=== PATIENT | male | born 1985 | race Two or more races ===

== ENCOUNTER 2020-08-11 03:33 | Inpatient (IN) | payer MEDICAID ==
[~2020-08-11] VITALS: Ht 165.1 cm; Wt 122.9 kg
[2020-08-11 04:16] LABS: COVID AG,FIA SOURCE NASOPHARYNGEAL
[2020-08-11 04:22] LABS: BASOPHILS % (AUTO) 0.5 % (0.0-2.0); EOSINOPHILS % (AUTO) 1.6 % (1.0-6.0); HEMATOCRIT 44.3 % (41-53); HEMOGLOBIN 14.8 g/dL (13.5-17.5); LYMPHOCYTES # (AUTO) 1.7 K/uL (1.0-4.8); LYMPHOCYTES % (AUTO) 14.3 % (22.0-44.0); MEAN CORPUSCULAR HEMOGLOBIN 30.6 pg (26.0-34.0); MEAN CORPUSCULAR HGB CONC 33.4 G/dL (31.0-37.0); MEAN CORPUSCULAR VOLUME 92 fL (80-100); MONOCYTES # (AUTO) 0.8 K/uL (0.1-1.0); MONOCYTES % (AUTO) 6.9 % (2.0-9.0); NEUTROPHILS # (AUTO) 8.9 K/uL (1.8-7.7); NEUTROPHILS % (AUTO) 76.7 % (40.0-70.0); PLATELET COUNT (AUTO) 350 K/uL (150-450); RED BLOOD CELL COUNT(AUTO) 4.83 MIL/uL (4.50-5.90); RED CELL DISTRIBUTION WIDTH 13.4 % (11.5-14.5)
[2020-08-11 04:30] LABS: ANION GAP 10 mmol/L (8-16); CALCIUM, TOTAL 9.7 mg/dL (8.8-10.5); CARBON DIOXIDE 28 mmol/L (22-29); CHLORIDE 103 mmol/L (98-107); CREATININE 1.41 mg/dL (0.60-1.30); GLOMERULAR FILTR. RATE CALC 57 mL/min (>60); GLUCOSE,RANDOM 104 mg/dL (70-110); POTASSIUM 4.8 mmol/L (3.5-5.1); SODIUM SERUM 141 mmol/L (136-145); UREA NITROGEN, BLOOD 17 mg/dL (7-18)
[2020-08-11 04:35] LABS: ALANINE AMINOTRANSFERASE 52 U/L (12-78); ALBUMIN 4.2 g/dL (3.4-5.0); ALKALINE PHOSPHATASE 89 U/L (46-116); ASPARTATE AMINOTRANSFERASE 31 U/L (15-37); BILIRUBIN,TOTAL 0.5 mg/dL (0.1-1.0)
[2020-08-11 04:36] LABS: SALICYLATE 1.8 mg/dL (2.8-20.0)
[2020-08-11 04:48] LABS: ACETAMINOPHEN < 2 mcg/mL (10-30)
[2020-08-11 06:58] LABS: AMPHET/METH SCREEN,URINE POSITIVE (NEGATIVE); BARBITURATE SCREEN, URINE NEGATIVE (NEGATIVE); BENZODIAZEPINES SCREEN,URINE NEGATIVE (NEGATIVE); CANNABINOID SCREEN,URINE NEGATIVE (NEGATIVE); COCAINE SCREEN,URINE NEGATIVE (NEGATIVE); METHADONE SCREEN, URINE NEGATIVE (NEGATIVE); OPIATE SCREEN,URINE NEGATIVE (NEGATIVE)
[2020-08-11 06:59] LABS: PHENCYCLIDINE SCREEN,URINE NEGATIVE (NEGATIVE)
[2020-08-11] MEDS ORDERED: HALOPERIDOL 5 MG TABLET PO PRN (08:15)
[2020-08-11] MEDS ORDERED: ZOLPIDEM TARTRATE 10 MG TABLET PO PRN (08:15)
[2020-08-11] MEDS ORDERED: LORazepam 2 MG TABLET PO PRN (08:15)
[2020-08-11] MEDS ORDERED: BENZOCAINE/MENTHOL LOZENGE PO PRN (09:15)
[2020-08-11] MEDS ORDERED: PETROLATUM,WHITE 28 GM JELLY TP PRN (09:15)
[2020-08-11] MEDS ORDERED: DOCUSATE SODIUM 100 MG CAPSULE PO PRN (09:15)
[2020-08-11] MEDS ORDERED: CloNIDine HCL 0.1 MG TABLET PO PRN (09:15)
[2020-08-11] MEDS ORDERED: OMEPRAZOLE 20 MG CAPSULE PO PRN (09:15)
[2020-08-11] MEDS ORDERED: ONDANSETRON HCL 4 MG TABLET PO PRN (09:15)
[2020-08-11] MEDS ORDERED: IBUPROFEN 600 MG TABLET PO PRN (09:15)
[2020-08-11] MEDS ORDERED: LOPERAMIDE HCL 2 MG CAPSULE PO PRN (09:15)
[2020-08-11] MEDS ORDERED: ACETAMINOPHEN 325 MG TABLET PO PRN (09:15)
[2020-08-11] MEDS ORDERED: MAG HYDROX/AL HYDROX/SIMETH ES 30 ML SUSPENSION UDCUP PO PRN (09:15)
[2020-08-11] MEDS ORDERED: ALBUTEROL SULFATE HFA 90 MCG/PUFF 8 GM INHALER IH PRN (09:15)
[2020-08-11] MEDS ORDERED: BACITRACIN 28 GM OINTMENT TP PRN (09:15)
[2020-08-11] MEDS ORDERED: MAGNESIUM HYDROXIDE SUSPENSION 30 ML UDCUP PO PRN (09:15)
[2020-08-11 13:21] VITALS: BP 156/94
[2020-08-11 17:51] VITALS: BP 131/87
[2020-08-12 03:40] VITALS: BP_SYST 121; BP_SYST 136; BP_DIAS 64; BP_DIAS 84
[2020-08-12 08:32] VITALS: BP 131/66
[2020-08-12 08:35] LABS: CHOL/HDL RATIO 5.1 (4.2-7.3); FREE T4 (FREE THYROXINE) 1.06 ng/dL (0.76-1.46); THYROID STIMULATING HORMONE 0.76 uIU/mL (0.36-3.74)
[2020-08-12 16:11] VITALS: BP 126/67
[2020-08-13 03:43] VITALS: BP 128/83
[2020-08-13] MEDS: CITALOPRAM HYDROBROMIDE 20 MG TABLET PO SCH (08:10)
[2020-08-13 08:29] VITALS: BP 122/78
[2020-08-13 16:06] VITALS: BP 127/72
[2020-08-14 00:37] VITALS: BP 129/74
[2020-08-14 08:07] VITALS: BP 121/67
[2020-08-14] MEDS: CITALOPRAM HYDROBROMIDE 20 MG TABLET PO SCH (08:21)
[2020-08-14 16:09] VITALS: BP 113/70
[2020-08-15 00:11] VITALS: BP 125/66
[2020-08-15] MEDS: CITALOPRAM HYDROBROMIDE 20 MG TABLET PO SCH (08:07)
[2020-08-15 08:16] VITALS: BP 129/76
[2020-08-15 16:30] VITALS: BP 145/77
[2020-08-16 03:16] VITALS: BP 125/68
[2020-08-16 07:27] LABS: BAND NEUTROPHILS % (MANUAL) 0 % (0-5)
[2020-08-16 07:36] LABS: HEMOGLOBIN 16.5 g/dL (13.5-17.5); MEAN CORPUSCULAR HEMOGLOBIN 30.8 pg (26.0-34.0); MEAN CORPUSCULAR HGB CONC 33.6 G/dL (31.0-37.0); MEAN CORPUSCULAR VOLUME 92 fL (80-100); PLATELET COUNT (AUTO) 305 K/uL (150-450); RED BLOOD CELL COUNT(AUTO) 5.34 MIL/uL (4.50-5.90); RED CELL DISTRIBUTION WIDTH 12.9 % (11.5-14.5)
[2020-08-16 07:39] LABS: COVID AG,FIA SOURCE NASOPHARYNGEAL
[2020-08-16 07:53] LABS: ANION GAP 7 mmol/L (8-16); CALCIUM, TOTAL 9.2 mg/dL (8.8-10.5); CARBON DIOXIDE 30 mmol/L (22-29); CHLORIDE 101 mmol/L (98-107); CREATININE 1.14 mg/dL (0.60-1.30); GLOMERULAR FILTR. RATE CALC > 60 mL/min (>60); GLUCOSE,RANDOM 97 mg/dL (70-110); PHOSPHORUS 3.6 mg/dL (2.5-4.9); POTASSIUM 4.3 mmol/L (3.5-5.1); SODIUM SERUM 138 mmol/L (136-145); UREA NITROGEN, BLOOD 14 mg/dL (7-18)
[2020-08-16 08:20] VITALS: BP 126/74
[2020-08-16] MEDS: CITALOPRAM HYDROBROMIDE 20 MG TABLET PO SCH (08:27)
[2020-08-16 08:42] LABS: EOSINOPHILS % (MANUAL) 2 % (1-6); LYMPHOCYTES % (MANUAL) 36 % (22-44); MONOCYTES % (MANUAL) 10 % (2-9); SEGMENTED NEUTROPHILS % 52 % (40-70)
[2020-08-16 16:10] VITALS: BP 119/70
[2020-08-17 01:05] VITALS: BP 115/63
[2020-08-17 08:10] VITALS: BP 131/84
[2020-08-17] MEDS: CITALOPRAM HYDROBROMIDE 20 MG TABLET PO SCH ×3 (08:33→14:08)
[2020-08-17] MEDS ORDERED: THIAMINE 100 MG TABLET PO ONE (13:45)
[2020-08-17 16:12] VITALS: BP 140/93
[2020-08-18 05:40] VITALS: BP 129/83
[2020-08-18 08:11] VITALS: BP 120/74
[2020-08-18] MEDS: CITALOPRAM HYDROBROMIDE 20 MG TABLET PO SCH (08:52)
[2020-08-18] MEDS: FOLIC ACID 1 MG TABLET PO SCH (08:52)
[2020-08-18] MEDS: THIAMINE 100 MG TABLET PO SCH (08:52)
[2020-08-18] MEDS: MULTIVITAMINS WITH MINERALS, THERAPEUTIC TABLET PO SCH (08:52)
[2020-08-18 16:15] VITALS: BP 131/98
[2020-08-19 05:49] VITALS: BP 128/81
[2020-08-19 08:10] VITALS: BP_SYST 121; BP_SYST 127; BP_DIAS 65; BP_DIAS 70
[2020-08-19] MEDS: MULTIVITAMINS WITH MINERALS, THERAPEUTIC TABLET PO SCH (08:56)
[2020-08-19] MEDS: FOLIC ACID 1 MG TABLET PO SCH (08:56)
[2020-08-19] MEDS: THIAMINE 100 MG TABLET PO SCH (08:56)
[2020-08-19] MEDS: CITALOPRAM HYDROBROMIDE 20 MG TABLET PO SCH (08:56)
[2020-08-19 16:33] VITALS: BP 123/75
[2020-08-20 06:51] VITALS: BP 139/80
[2020-08-20] MEDS: THIAMINE 100 MG TABLET PO SCH (08:45)
[2020-08-20] MEDS: FOLIC ACID 1 MG TABLET PO SCH (08:45)
[2020-08-20] MEDS: MULTIVITAMINS WITH MINERALS, THERAPEUTIC TABLET PO SCH (08:46)
[2020-08-20] MEDS: CITALOPRAM HYDROBROMIDE 20 MG TABLET PO SCH (08:46)
[2020-08-20 08:47] VITALS: BP 129/95
[2020-08-20 16:24] VITALS: BP 130/76
[2020-08-21 05:38] VITALS: BP 127/86
[2020-08-21] MEDS: FOLIC ACID 1 MG TABLET PO SCH (08:24)
[2020-08-21] MEDS: CITALOPRAM HYDROBROMIDE 20 MG TABLET PO SCH (08:24)
[2020-08-21] MEDS: THIAMINE 100 MG TABLET PO SCH (08:24)
[2020-08-21] MEDS: MULTIVITAMINS WITH MINERALS, THERAPEUTIC TABLET PO SCH (08:24)
[2020-08-21 08:48] VITALS: BP 127/78
[2020-08-21 16:16] VITALS: BP 116/76
[2020-08-22 05:58] VITALS: BP 114/72
[2020-08-22 07:45] LABS: COVID AG,FIA SOURCE NASOPHARYNGEAL
[2020-08-22] MEDS: THIAMINE 100 MG TABLET PO SCH (08:08)
[2020-08-22] MEDS: MULTIVITAMINS WITH MINERALS, THERAPEUTIC TABLET PO SCH (08:08)
[2020-08-22] MEDS: FOLIC ACID 1 MG TABLET PO SCH (08:08)
[2020-08-22] MEDS: CITALOPRAM HYDROBROMIDE 20 MG TABLET PO SCH (08:08)
[2020-08-22 08:25] VITALS: BP 120/78
[2020-08-22] MEDS ORDERED: CITA-144 PO (08:35)
== END 2020-08-22 10:48 | disposition home or self-care (01) | DRG 754 ==
LOC: EMS 03:34 → B3A 06:13 → B2S 08:33
PROVIDERS: ADMIT Psychiatry & Neurology Psychiatry; ATTEND Psychiatry & Neurology Psychiatry
DX: F32.9 Major depressive disorder, single episode, unspecified (principal); R45.851 Suicidal ideations; Z68.42 Body mass index [BMI] 45.0-49.9, adult; E66.9 Obesity, unspecified; Z20.822 Contact with and (suspected) exposure to COVID-19; F15.10 Other stimulant abuse, uncomplicated; I10 Essential (primary) hypertension; K59.00 Constipation, unspecified
CPT/HCPCS: 80048; 80053; 80061; 83735; 84100; 84439; 84443; 85007; 85025; 85027; 87426; 99285; G0480; G0481

== ENCOUNTER 2020-11-05 21:46 | Inpatient (IN) | payer MEDICAID, OTHER ==
[~2020-11-05] VITALS: Ht 177.8 cm; Wt 126.6 kg
[~2020-11-05 21:46] MED LIST: CITA-144 PO
[2020-11-05 23:13] LABS: COVID AG,FIA SOURCE NASOPHARYNGEAL
[2020-11-05 23:15] LABS: BASOPHILS % (AUTO) 0.4 % (0.0-2.0); EOSINOPHILS % (AUTO) 0.8 % (1.0-6.0); HEMATOCRIT 41.4 % (41-53); HEMOGLOBIN 13.8 g/dL (13.5-17.5); LYMPHOCYTES # (AUTO) 1.2 K/uL (1.0-4.8); LYMPHOCYTES % (AUTO) 7.5 % (22.0-44.0); MEAN CORPUSCULAR HEMOGLOBIN 30.5 pg (26.0-34.0); MEAN CORPUSCULAR HGB CONC 33.3 G/dL (31.0-37.0); MEAN CORPUSCULAR VOLUME 92 fL (80-100); MONOCYTES # (AUTO) 0.8 K/uL (0.1-1.0); MONOCYTES % (AUTO) 5.3 % (2.0-9.0); NEUTROPHILS # (AUTO) 13.5 K/uL (1.8-7.7); PLATELET COUNT (AUTO) 354 K/uL (150-450); RED BLOOD CELL COUNT(AUTO) 4.52 MIL/uL (4.50-5.90); RED CELL DISTRIBUTION WIDTH 12.5 % (11.5-14.5)
[2020-11-05] MEDS ORDERED: PERTUSS(ACELL),DIPH,TET VAC/PF 0.5 ML SYRINGE IM. ONE (23:15)
[2020-11-05 23:26] LABS: ANION GAP 16 mmol/L (8-16); CARBON DIOXIDE 23 mmol/L (22-29); CHLORIDE 104 mmol/L (98-107); CREATININE 1.27 mg/dL (0.60-1.30); GLOMERULAR FILTR. RATE CALC > 60 mL/min (>60); GLUCOSE,RANDOM 116 mg/dL (70-110); POTASSIUM 3.5 mmol/L (3.5-5.1); SODIUM SERUM 143 mmol/L (136-145); UREA NITROGEN, BLOOD 17 mg/dL (7-18)
[2020-11-05] MEDS ORDERED: LORazepam 2 MG TABLET PO PRN (23:30)
[2020-11-05] MEDS ORDERED: HALOPERIDOL 5 MG TABLET PO PRN (23:30)
[2020-11-05] MEDS ORDERED: ZOLPIDEM TARTRATE 10 MG TABLET PO PRN (23:30)
[2020-11-05 23:34] LABS: ALANINE AMINOTRANSFERASE 53 U/L (12-78); ALBUMIN 3.6 g/dL (3.4-5.0); ALKALINE PHOSPHATASE 81 U/L (46-116); ASPARTATE AMINOTRANSFERASE 39 U/L (15-37); BILIRUBIN,TOTAL 0.4 mg/dL (0.1-1.0); TOTAL PROTEIN, SERUM 7.6 g/dL (6.4-8.2)
[2020-11-06 05:20] VITALS: BP 148/85
[2020-11-06] MEDS ORDERED: MAGNESIUM HYDROXIDE SUSPENSION 30 ML UDCUP PO PRN (08:45)
[2020-11-06] MEDS ORDERED: IBUPROFEN 400 MG TABLET PO PRN (08:45)
[2020-11-06] MEDS ORDERED: DOCUSATE SODIUM 100 MG CAPSULE PO PRN (08:45)
[2020-11-06] MEDS ORDERED: CloNIDine HCL 0.1 MG TABLET PO PRN (08:45)
[2020-11-06] MEDS ORDERED: GuaiFENesin/D-METHORPHAN [SUGAR-FREE] 200-20MG/10 ML SYRUP UDCUP PO PRN (08:45)
[2020-11-06] MEDS ORDERED: LOPERAMIDE HCL 2 MG CAPSULE PO PRN (08:45)
[2020-11-06] MEDS ORDERED: MAG HYDROX/AL HYDROX/SIMETH ES 30 ML SUSPENSION UDCUP PO PRN (08:45)
[2020-11-06] MEDS ORDERED: ALBUTEROL SULFATE HFA 90 MCG/PUFF 8 GM INHALER IH PRN (08:45)
[2020-11-06] MEDS ORDERED: ONDANSETRON HCL 4 MG TABLET PO PRN (08:45)
[2020-11-06] MEDS ORDERED: NICOTINE 14 MG/24 HOUR PATCH TD PRN (08:45)
[2020-11-06] MEDS ORDERED: ACETAMINOPHEN 325 MG TABLET PO PRN (08:45)
[2020-11-06] MEDS ORDERED: PETROLATUM,WHITE 28 GM JELLY TP PRN (08:45)
[2020-11-06 09:03] VITALS: BP 139/78
[2020-11-06] MEDS: OLANZapine 5 MG TABLET PO SCH ×2 (11:15→20:24)
[2020-11-06] MEDS: BuPROPion HCL XL 150 MG ER TABLET PO SCH (11:15)
[2020-11-06 16:47] VITALS: BP 109/63
[2020-11-07 05:57] VITALS: BP 116/76
[2020-11-07 07:52] LABS: CHOL/HDL RATIO 5.1 (4.2-7.3)
[2020-11-07 08:18] VITALS: BP 134/81
[2020-11-07] MEDS: BuPROPion HCL XL 150 MG ER TABLET PO SCH (08:56)
[2020-11-07] MEDS: OLANZapine 5 MG TABLET PO SCH ×2 (08:56→20:09)
[2020-11-07] MEDS: CEPHALEXIN MONOHYDRATE 500 MG CAPSULE PO SCH ×2 (14:32→17:00)
[2020-11-07] MEDS: BACITRACIN 28 GM OINTMENT TP SCH ×2 (14:32→17:03)
[2020-11-07 16:11] VITALS: BP 116/77
[2020-11-07 20:14] VITALS: BP 120/80
[2020-11-08 05:48] VITALS: BP 137/83
[2020-11-08 08:31] VITALS: BP 135/85
[2020-11-08] MEDS: CEPHALEXIN MONOHYDRATE 500 MG CAPSULE PO SCH ×3 (08:47→16:53)
[2020-11-08] MEDS: OLANZapine 5 MG TABLET PO SCH ×2 (08:47→20:27)
[2020-11-08] MEDS: BACITRACIN 28 GM OINTMENT TP SCH ×2 (08:47→16:54)
[2020-11-08] MEDS: BuPROPion HCL XL 150 MG ER TABLET PO SCH (08:47)
[2020-11-08 16:05] VITALS: BP 117/74
[2020-11-09 06:01] VITALS: BP 128/79
[2020-11-09 08:17] VITALS: BP 142/87
[2020-11-09] MEDS: BACITRACIN 28 GM OINTMENT TP SCH ×2 (08:44→17:12)
[2020-11-09] MEDS: BuPROPion HCL XL 150 MG ER TABLET PO SCH (08:44)
[2020-11-09] MEDS: OLANZapine 5 MG TABLET PO SCH ×2 (08:44→20:27)
[2020-11-09] MEDS: CEPHALEXIN MONOHYDRATE 500 MG CAPSULE PO SCH ×3 (08:44→17:11)
[2020-11-09 16:15] VITALS: BP 121/68
[2020-11-10 06:05] VITALS: BP 103/68
[2020-11-10] MEDS: CEPHALEXIN MONOHYDRATE 500 MG CAPSULE PO SCH ×3 (08:49→16:28)
[2020-11-10] MEDS: OLANZapine 5 MG TABLET PO SCH ×2 (08:49→20:08)
[2020-11-10] MEDS: BuPROPion HCL XL 150 MG ER TABLET PO SCH (08:49)
[2020-11-10 08:56] VITALS: BP 136/85
[2020-11-10] MEDS: BACITRACIN 28 GM OINTMENT TP SCH ×2 (09:49→16:29)
[2020-11-10 16:05] VITALS: BP 121/78
[2020-11-11 05:35] VITALS: BP 120/87
[2020-11-11 07:39] LABS: BASOPHILS % (AUTO) 0.5 % (0.0-2.0); EOSINOPHILS % (AUTO) 5.7 % (1.0-6.0); HEMATOCRIT 44.7 % (41-53); LYMPHOCYTES # (AUTO) 2.2 K/uL (1.0-4.8); LYMPHOCYTES % (AUTO) 35.1 % (22.0-44.0); MEAN CORPUSCULAR HEMOGLOBIN 30.8 pg (26.0-34.0); MEAN CORPUSCULAR HGB CONC 33.6 G/dL (31.0-37.0); MEAN CORPUSCULAR VOLUME 92 fL (80-100); MONOCYTES # (AUTO) 0.4 K/uL (0.1-1.0); MONOCYTES % (AUTO) 6.8 % (2.0-9.0); NEUTROPHILS # (AUTO) 3.3 K/uL (1.8-7.7); NEUTROPHILS % (AUTO) 51.9 % (40.0-70.0); PLATELET COUNT (AUTO) 373 K/uL (150-450); RED BLOOD CELL COUNT(AUTO) 4.88 MIL/uL (4.50-5.90); RED CELL DISTRIBUTION WIDTH 12.8 % (11.5-14.5)
[2020-11-11] MEDS: BuPROPion HCL XL 150 MG ER TABLET PO SCH (08:35)
[2020-11-11] MEDS: CEPHALEXIN MONOHYDRATE 500 MG CAPSULE PO SCH ×3 (08:35→16:33)
[2020-11-11] MEDS: OLANZapine 5 MG TABLET PO SCH ×2 (08:36→20:40)
[2020-11-11] MEDS: BACITRACIN 28 GM OINTMENT TP SCH ×2 (08:36→16:33)
[2020-11-11 08:53] VITALS: BP 136/94
[2020-11-11 16:00] VITALS: BP 138/83
[2020-11-12 04:59] VITALS: BP 136/91
[2020-11-12] MEDS: MULTIVITAMINS WITH MINERALS, THERAPEUTIC TABLET PO SCH (08:32)
[2020-11-12] MEDS: BACITRACIN 28 GM OINTMENT TP SCH ×2 (08:32→16:48)
[2020-11-12] MEDS: CEPHALEXIN MONOHYDRATE 500 MG CAPSULE PO SCH ×3 (08:32→16:45)
[2020-11-12] MEDS: THIAMINE 100 MG TABLET PO SCH (08:32)
[2020-11-12] MEDS: OLANZapine 5 MG TABLET PO SCH ×2 (08:32→21:14)
[2020-11-12] MEDS: BuPROPion HCL XL 150 MG ER TABLET PO SCH (08:32)
[2020-11-12] MEDS: FOLIC ACID 1 MG TABLET PO SCH (08:32)
[2020-11-12 08:52] VITALS: BP 127/88
[2020-11-12] MEDS ORDERED: BACITRACIN 28 GM OINTMENT TP PRN (17:00)
[2020-11-12 17:21] VITALS: BP 112/79
[2020-11-13 05:58] VITALS: BP 120/80
[2020-11-13] MEDS: THIAMINE 100 MG TABLET PO SCH (08:41)
[2020-11-13] MEDS: BuPROPion HCL XL 150 MG ER TABLET PO SCH (08:41)
[2020-11-13] MEDS: CEPHALEXIN MONOHYDRATE 500 MG CAPSULE PO SCH ×3 (08:41→16:46)
[2020-11-13] MEDS: MULTIVITAMINS WITH MINERALS, THERAPEUTIC TABLET PO SCH (08:41)
[2020-11-13] MEDS: FOLIC ACID 1 MG TABLET PO SCH (08:41)
[2020-11-13] MEDS: OLANZapine 5 MG TABLET PO SCH ×2 (08:42→21:08)
[2020-11-13 09:50] VITALS: BP 126/80
[2020-11-13 17:17] VITALS: BP 116/79
[2020-11-14 06:27] VITALS: BP 132/83
[2020-11-14] MEDS: MULTIVITAMINS WITH MINERALS, THERAPEUTIC TABLET PO SCH (08:23)
[2020-11-14] MEDS: THIAMINE 100 MG TABLET PO SCH (08:23)
[2020-11-14] MEDS: FOLIC ACID 1 MG TABLET PO SCH (08:23)
[2020-11-14] MEDS: BuPROPion HCL XL 150 MG ER TABLET PO SCH (08:23)
[2020-11-14] MEDS: CEPHALEXIN MONOHYDRATE 500 MG CAPSULE PO SCH (08:24)
[2020-11-14] MEDS: OLANZapine 5 MG TABLET PO SCH (08:24)
[2020-11-14 08:25] VITALS: BP 137/86
[2020-11-14] MEDS ORDERED: BUPR-49 PO (09:15)
[2020-11-14] MEDS ORDERED: OLAN5TAB52 PO (09:15)
[2020-11-14] MEDS ORDERED: CEPH500C3 PO (11:03)
== END 2020-11-14 11:43 | disposition home or self-care (01) | DRG 750 ==
LOC: EMS 21:50 → B3A 11-06 00:32
DX: F25.0 Schizoaffective disorder, bipolar type (principal); R45.851 Suicidal ideations; Z59.0 Homelessness; D72.829 Elevated white blood cell count, unspecified; F10.10 Alcohol abuse, uncomplicated; E66.9 Obesity, unspecified; Z20.822 Contact with and (suspected) exposure to COVID-19; F15.90 Other stimulant use, unspecified, uncomplicated; Y90.1 Blood alcohol level of 20-39 mg/100 ml; Z79.899 Other long term (current) drug therapy; Z87.891 Personal history of nicotine dependence; Z68.41 Body mass index [BMI] 40.0-44.9, adult
CPT/HCPCS: 80053; 80061; 85025; 90715; 99285; G0480